=== PATIENT | male | born 1995 | race Caucasian/White ===

== ENCOUNTER 2020-08-04 04:49 | Emergency (ER) | payer SELFPAY ==
[~2020-08-04] VITALS: Ht 172.7 cm; Wt 68.0 kg
[2020-08-04 07:05] VITALS: BP 122/78
[2020-08-04 07:43] LABS: Basophils # (auto) 0 10 ^3/uL (0-0.2); Basophils % (auto) 0.1 % (0.0-2.0); Eosinophils # (auto) 0 10 ^3/uL (0-0.8); Eosinophils % (auto) 0.3 % (0.0-7.0); Hematocrit 40.1 % (41.0-53.0); Hemoglobin 13.1 g/dL (13.5-17.5); Lymphocytes # (auto) 0.4 10 ^3/uL (0.4-5.4); Mean Corpuscular Hemoglobin 27.7 pg (28.0-32.0); Mean Corpuscular Hgb Conc. 32.8 g/dL (32.0-36.0); Mean Corpuscular Volume 84.5 fL (80.0-100.0); Monocytes # (auto) 1.6 10 ^3/uL (0-1.3); Monocytes % (auto) 11.1 % (0.0-12.0); Neutrophils # (auto) 12.1 10 ^3/uL (1.6-8.6); Neutrophils % (auto) 85.5 % (37.0-80.0); Platelet Count (auto) 281 10^3/uL (140-450); Red Blood Cells 4.74 10^6/uL (4.5-5.90); Red Cell Distribution Width 13.3 % (11.8-14.3); White Blood Cell 14.2 10^3/uL (4.4-10.8)
[2020-08-04] MEDS ORDERED: SODIUM CHLORIDE 0.9% 1,000 ML IV ONE ×2 (07:45)
[2020-08-04] MEDS ORDERED: cefTRIAXone 1GM/50ML D5W 50 ML IV ONE (07:45)
[2020-08-04 07:48] LABS: Chloride 104 mmol/L (98-107); Potassium 3.6 mmol/L (3.5-5.1); Sodium 136 mmol/L (136-145)
[2020-08-04 07:57] LABS: Alanine Aminotransferase 20 U/L (16-61); Albumin 3.4 g/dL (3.4-5.0); Alkaline Phosphatase 102 U/L (45-117); Anion Gap 6 (5-15); Aspartate Aminotransferase 15 U/L (15-37); BUN/Creatinine Ratio 22.1; Bilirubin, Total 0.5 mg/dL (0.2-1.0); Blood Alcohol < 3.0 mg/dL (0-5); Blood Urea Nitrogen 15 mg/dL (7-18); Calcium 8.7 mg/dL (8.5-10.1); Carbon Dioxide 26 mmol/L (21-32); GFR African American 184 mL/min; GFR Non-African American 152 mL/min; Glucose 111 mg/dL (74-106); Total Protein 6.7 g/dL (6.4-8.2)
== END 2020-08-04 08:00 | disposition home or self-care (01) ==
LOC: EDBD 04:49 → ER 04:49
DX: R04.0 Epistaxis (principal); R51.9 Headache, unspecified; J34.89 Other specified disorders of nose and nasal sinuses
CPT/HCPCS: 36415; 70450; 70486; 71045; 72125; 80053; 80320; 85025